=== PATIENT | female | born 1950 | race Caucasian/White ===

== ENCOUNTER 2024-08-09 12:57 | Emergency (ER) | payer MEDICARE ==
[~2024-08-09] VITALS: Ht 152.4 cm; Wt 69.2 kg
[~2024-08-09 12:57] MED LIST: FERR325C PO; HYDR200T73 PO; LORA1TAB PO; LYR25C PO; MULT-785 PO; MYCO360T PO; SIMV-42 PO; VALS160T2 PO; [UNRECOGNIZED DRUG - CODE] SQ
[2024-08-09] MEDS: LIDOcaine 2% Viscous 15ml cup MM PRN (13:39)
[2024-08-09] MEDS: mag hydrox/Alum hydrox/simeth 30ml oral suspension PO ONE (13:39)
[2024-08-09] MEDS ORDERED: OMEP40CA21 PO (13:46)
[2024-08-09 14:17] VITALS: BP 122/60; PULSE 80; RESP 16; TEMP 98.6; O2SAT 99
== END 2024-08-09 14:26 | disposition home or self-care (01) ==
LOC: ER 12:57
DX: K30 Functional dyspepsia (principal); Z88.1 Allergy status to other antibiotic agents; Z79.899 Other long term (current) drug therapy
CPT/HCPCS: 99283